=== PATIENT | male | born 1965 | race African-American/Black ===

== ENCOUNTER 2017-11-30 02:56 | Emergency (ER) | payer MEDICAID, MEDICARE, OTHER ==
--- NOTE | 2017-11-30 09:14 | RAD ---
LEFT ANKLE 3 VIEWS: Date: 11/30/17 HISTORY: Injury. Ran over by a forklift. COMPARISON: None. FINDINGS: There is extensive medial malleolar soft tissue edema. The ankle mortise is congruent. IMPRESSION: Extensive medial soft tissue edema without displaced fracture appreciated. POS: [facility]
--- NOTE | 2017-11-30 09:16 | RAD ---
LEFT FOOT 3 VIEWS: Date: 11/30/17 HISTORY: Injury. Ran over by a forklift. Trauma. COMPARISON: None. FINDINGS: There is mild degenerative disease at the great toe metatarsophalangeal and interphalangeal joints. E xtensive medial and plantar soft tissue swelling. Evaluation of Lisfranc interval is poor. IMPRESSION: 1. Extensive medial soft tissue swelling and plantar soft tissue swelling. 2. 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 3. Given the rotation, evaluation of the Lisfranc interval is poor. Recommend correlation with focal tenderness of the mid foot. A repeat examination is recommended. POS: [facility]
== END 2017-11-30 04:21 | disposition home or self-care (01) ==
LOC: MADERS 02:56
DX: S90.02XA Contusion of left ankle, initial encounter (principal); F17.210 Nicotine dependence, cigarettes, uncomplicated; V03.10XA Pedestrian on foot injured in collision with car, pick-up truck or van in traffic accident, initial encounter
CPT/HCPCS: 29515

== ENCOUNTER 2017-12-01 11:32 | Emergency (ER) | payer MEDICAID, MEDICARE, OTHER ==
[2017-12-01] MEDS ORDERED: HYDROcodone/Acetaminophen 5/325 mg Tablet ONE (12:58)
--- NOTE | 2017-12-01 13:05 | CT ---
CT LEFT ANKLE WITHOUT CONTRAST: Date: 12/01/17 HISTORY: Injury. COMPARISON: Radiographs prior day. FINDINGS: Bones: No fracture. No malalignment. There is some ossification of the distal posterior tibial tendon near i ts insertion of the navicular with tendinosis. The Lisfranc interval is maintained. No midfoot fractu re. The talus and calcaneus are intact, as well as the cuboid and cuneiforms. Navicular is intact. Talar dome is intact. There is some fragmentation along the deltoid ligament, evidence of old injury. No os teochondral fracture. The ankle mortise is congruent. Soft Tissues: There is extensive hemorrhage along the medial aspect of the ankle and hindfoot with findings likely indicating a flexor retinaculum tear. Muscles: There is abnormal edema and what appears to be some hemorrhage at the abductor hallucis muscles. IMPRESSION: 1. No acute fracture or malalignment. 2. Likely a partial tear of the abductor hallucis muscle. 3. Abnormal hemorrhage along the medial aspect of the ankle and foot, suggesting a flexor retinaculu m tear. 4. Intact Lisfranc interval. POS: [facility]
== END 2017-12-01 13:09 | disposition home or self-care (01) ==
LOC: MADERS 11:32
DX: S76.212A Strain of adductor muscle, fascia and tendon of left thigh, initial encounter (principal); S96.012A Strain of muscle and tendon of long flexor muscle of toe at ankle and foot level, left foot, initial encounter; X50.9XXA Other and unspecified overexertion or strenuous movements or postures, initial encounter
CPT/HCPCS: 29515

== ENCOUNTER 2017-12-22 22:29 | Emergency (ER) | payer MEDICAID, MEDICARE, OTHER ==
[2017-12-22] MEDS ORDERED: Sulfameth/Trimethoprim DS 800-160mg TAB ONE (23:40)
[2017-12-22] MEDS ORDERED: Ketorolac Tromethamine 60 MG/2 ML VIAL ONE (23:40)
[2017-12-22] MEDS ORDERED: traMADol HCl 50 MG TAB ONE (23:40)
[2017-12-23 00:18] LABS: #Basophils 0.1 thou/uL (0.0-0.2); #Eosinphils 0.2 thou/uL (0.0-0.7); #Lymphocytes 3.2 thou/uL (1.20-3.40); #Monocytes 0.4 thou/uL (0.11-0.59); #Neutrophils 3.7 thou/uL (1.40-6.50); %Basophils 1.3 % (0.0-1.0); %Eosinophils 2.7 % (0.0-10.0); %Lymphocytes 41.9 % (21.0-51.0); %Monocytes 5.6 % (0.0-10.0); %Neutrophils 48.5 % (42.0-75.0); Hemoglobin 13.3 g/dL (14.0-18.0); Mean Corpuscular HGB CONC 32.4 g/dL (32.0-36.0); Mean Corpuscular Hemoglobin 28.2 pg (27.0-31.0); Mean Platelet Volume 6.3 fL (7.4-10.4); Platelet Count 327 thou/uL (130-400); RBC Distribution Width 12.4 % (11.5-14.5); Red Blood Cell (RBC) Count 4.73 mill/uL (4.70-6.10); White Blood Cell (WBC) Count 7.7 thou/uL (4.8-10.8)
[2017-12-23 00:27] LABS: ALT (SGPT) 21 U/L (8-55); AST (SGOT) 19 U/L (5-34); Albumin 4.1 g/dL (3.5-5.0); Alkaline Phosphatase 85 U/L (40-150); Anion Gap 15 mmol/L (10-20); BUN (Urea Nitrogen) 14 mg/dL (8.4-25.7); Bilirubin, Total 0.4 mg/dL (0.2-1.2); Calc. Creatinine Clearance 0 mL/min (70-130); Calcium 9.8 mg/dL (7.8-10.44); Carbon Dioxide 22 mmol/L (22-29); Chloride 107 mmol/L (98-107); Estimated GFR-MDRD 74; Globulin 3.5 g/dL (2.4-3.5); Glucose 117 mg/dL (70-105); Potassium 4.1 mmol/L (3.5-5.1); Protein, Total 7.6 g/dL (6.0-8.3); Sodium 140 mmol/L (136-145)
== END 2017-12-22 22:52 | disposition home or self-care (01) ==
LOC: MADERS 22:29
DX: S43.402A Unspecified sprain of left shoulder joint, initial encounter (principal); L03.116 Cellulitis of left lower limb; F17.210 Nicotine dependence, cigarettes, uncomplicated; W31.82XA Contact with other commercial machinery, initial encounter; Y92.69 Other specified industrial and construction area as the place of occurrence of the external cause; Y99.0 Civilian activity done for income or pay
CPT/HCPCS: 36415; 80053; 85025; 87070; 87205; 96372; J1885

== ENCOUNTER 2018-07-04 21:07 | Emergency (ER) | payer MEDICARE, MEDICAID | END 2018-07-04 21:45 | disposition home or self-care (01) | LOC: MADERS 21:07 | DX: R42 Dizziness and giddiness (principal); F31.9 Bipolar disorder, unspecified; F20.9 Schizophrenia, unspecified; F17.210 Nicotine dependence, cigarettes, uncomplicated | CPT/HCPCS: 99283 ==

== ENCOUNTER 2020-07-02 14:16 | Outpatient (CLI) | payer MEDICARE ==
[2020-07-03 02:22] LABS: SARS-CoV-2 PCR by NAA Not Detected (NotDetected)
== END 2020-07-02 14:17 | disposition home or self-care (01) ==
LOC: MADLAB 14:16
PROVIDERS: ATTEND Nurse Practitioner Primary Care
DX: Z20.822 Contact with and (suspected) exposure to COVID-19 (principal)
CPT/HCPCS: 87635; U0003; U0005

== ENCOUNTER 2021-05-24 01:40 | Emergency (ER) | payer MEDICARE | END 2021-05-24 02:35 | disposition home or self-care (01) | LOC: MADERS 01:40 | DX: F41.9 Anxiety disorder, unspecified (principal); M19.90 Unspecified osteoarthritis, unspecified site; Z86.73 Personal history of transient ischemic attack (TIA), and cerebral infarction without residual deficits; F17.210 Nicotine dependence, cigarettes, uncomplicated | CPT/HCPCS: 99284 ==

== ENCOUNTER 2025-01-18 15:16 | Emergency (ER) | payer MEDICARE, MEDICAID ==
[2025-01-18 16:10] LABS: ALT (SGPT) 22 U/L (Less than 45); AST (SGOT) 48 U/L (11-34); Albumin 4.0 g/dL (3.1-4.5); Alkaline Phosphatase 70 U/L (40-110); Anion Gap 16 mmol/L (10-20); BUN (Urea Nitrogen) 12 mg/dL (8.4-25.7); Bilirubin, Total 0.4 mg/dL (0.3-1.2); Calc. Creatinine Clearance 0 mL/min (70-130); Calcium 9.2 mg/dL (7.8-10.44); Carbon Dioxide 21 mmol/L (22-29); Chloride 105 mmol/L (98-107); Globulin 3.9 g/dL (2.4-3.5); Glucose 120 mg/dL (70-105); Potassium 3.9 mmol/L (3.5-5.1); Sodium 138 mmol/L (136-145)
[2025-01-18 16:11] LABS: Troponin I Less than 0.010 ng/mL (< 0.028)
[2025-01-18] MEDS ORDERED: Ketorolac Tromethamine 30 MG (1 mL) VIAL ONE (16:13)
[2025-01-18 16:28] LABS: #Basophils 0.1 thou/uL (0.0-0.2); #Eosinophils 0.2 thou/uL (0.0-0.7); #Lymphocytes 2.3 thou/uL (1.20-3.40); #Monocytes 0.3 thou/uL (0.11-0.59); #Neutrophils 5.5 thou/uL (1.40-6.50); %Basophils 1.5 % (0.0-1.0); %Eosinophils 2.8 % (0.0-10.0); %Lymphocytes 27.2 % (21.0-51.0); %Monocytes 3.9 % (0.0-10.0); %Neutrophils 64.6 % (42.0-75.0); Hematocrit 38.1 % (42.0-52.0); Hemoglobin 11.8 g/dL (14.0-18.0); Mean Corpuscular Hemoglobin 25.9 pg (27.0-31.0); Mean Corpuscular Volume 83.4 fl (78.0-98.0); Platelet Count 414 10x3/uL (130-400); Red Blood Cell (RBC) Count 4.57 mill/uL (4.70-6.10); White Blood Cell (WBC) Count 8.6 10x3/uL (4.8-10.8)
[2025-01-18 17:00] LABS: Glucose, Urine (Dipstick) Negative (Negative); Leukocyte Negative (Negative); Protein, Urine (Dipstick) Negative (Neg-Trace); Specific Gravity, Urine 1.010 (1.005-1.030)
[2025-01-18 17:08] LABS: CAUTI Indications for Culture Pelvic or flank pain; Cocaine Metabolite Screen PRELIM POSITIVE (Negative); RBC/HPF None Seen HPF (0-3); THC/Cannabinoid Screen PRELIM POSITIVE (Negative); Tricyclic Screen Negative (Negative); WBC/HPF None Seen HPF (0-3)
[2025-01-18 17:09] LABS: Bacteria/HPF Rare-Few HPF (None Seen); Mucous/LPF Rare LPF (<2+); Urine Culture Reflex No No
== END 2025-01-18 16:52 | disposition home or self-care (01) ==
LOC: MADERS 15:16
DX: R07.9 Chest pain, unspecified (principal); F41.1 Generalized anxiety disorder; Z86.73 Personal history of transient ischemic attack (TIA), and cerebral infarction without residual deficits; I10 Essential (primary) hypertension; E78.5 Hyperlipidemia, unspecified; Z79.82 Long term (current) use of aspirin; Z79.899 Other long term (current) drug therapy
CPT/HCPCS: 71046; 80053; 80306; 81001; 84484; 85025; 93005; J1885; J7030; 96374

== ENCOUNTER 2025-03-19 12:20 | Emergency (ER) | payer MEDICARE, MEDICAID ==
[2025-03-19 13:11] LABS: Glucose, Urine (Dipstick) Negative (Negative); Leukocyte Negative (Negative); Protein, Urine (Dipstick) Negative (Neg-Trace); Specific Gravity, Urine 1.015 (1.005-1.030)
[2025-03-19 13:15] LABS: Bacteria/HPF Rare-Few HPF (None Seen); CAUTI Indications for Culture Alt mental st,lethar; RBC/HPF 0-3 HPF (0-3); WBC/HPF 0-3 HPF (0-3)
[2025-03-19 13:16] LABS: Urine Culture Reflex No No
[2025-03-19 13:17] LABS: ALT (SGPT) 19 U/L (Less than 45); AST (SGOT) 19 U/L (11-34); Albumin 3.9 g/dL (3.1-4.5); Alkaline Phosphatase 75 U/L (40-110); Anion Gap 12 mmol/L (10-20); BUN (Urea Nitrogen) 14 mg/dL (8.4-25.7); Bilirubin, Total 0.6 mg/dL (0.3-1.2); Calc. Creatinine Clearance 0 mL/min (70-130); Calcium 8.7 mg/dL (7.8-10.44); Carbon Dioxide 23 mmol/L (22-29); Chloride 104 mmol/L (98-107); Globulin 3.3 g/dL (2.4-3.5); Glucose 101 mg/dL (70-105); Potassium 3.9 mmol/L (3.5-5.1); Sodium 135 mmol/L (136-145)
[2025-03-19 13:18] LABS: Acetaminophen Less than 10 mcg/mL (Less than 10); Hematocrit 37.1 % (42.0-52.0); Hemoglobin 11.5 g/dL (14.0-18.0); MDiff Complete? YES; Mean Corpuscular Hemoglobin 26.1 pg (27.0-31.0); Mean Corpuscular Volume 84.1 fl (78.0-98.0); Platelet Adequacy Comment Appears Adequate; Platelet Count 340 10x3/uL (130-400); Red Blood Cell (RBC) Count 4.42 mill/uL (4.70-6.10); Salicylate Less than 8.0 mg/dL (Less than 8.0); White Blood Cell (WBC) Count 7.3 10x3/uL (4.8-10.8)
[2025-03-19 13:19] LABS: Troponin I Less than 0.010 ng/mL (< 0.028)
[2025-03-19 13:28] LABS: THC/Cannabinoid Screen Negative (Negative)
[2025-03-19 13:29] LABS: Cocaine Metabolite Screen PRELIM POSITIVE (Negative); Tricyclic Screen Negative (Negative)
== END 2025-03-19 17:50 | disposition short-term general hospital (02) ==
LOC: MADERS 12:20
DX: R45.851 Suicidal ideations (principal); F14.20 Cocaine dependence, uncomplicated; J45.909 Unspecified asthma, uncomplicated; I10 Essential (primary) hypertension; E78.5 Hyperlipidemia, unspecified; I25.2 Old myocardial infarction; F17.210 Nicotine dependence, cigarettes, uncomplicated; Z86.73 Personal history of transient ischemic attack (TIA), and cerebral infarction without residual deficits; Z79.899 Other long term (current) drug therapy
CPT/HCPCS: 36415; 80053; 80306; 80307; 81001; 84443; 84484; 85025; 93005; 94760; 99285

== ENCOUNTER 2025-03-30 17:28 | Emergency (ER) | payer MEDICARE, MEDICAID ==
[2025-03-30 18:02] LABS: #Basophils 0.1 thou/uL (0.0-0.2); #Eosinophils 0.3 thou/uL (0.0-0.7); #Lymphocytes 2.9 thou/uL (1.20-3.40); #Monocytes 0.5 thou/uL (0.11-0.59); #Neutrophils 4.3 thou/uL (1.40-6.50); %Basophils 1.7 % (0.0-1.0); %Eosinophils 3.8 % (0.0-10.0); %Lymphocytes 35.7 % (21.0-51.0); %Monocytes 6.5 % (0.0-10.0); %Neutrophils 52.4 % (42.0-75.0); Hematocrit 37.4 % (42.0-52.0); Hemoglobin 11.5 g/dL (14.0-18.0); Mean Corpuscular Hemoglobin 25.9 pg (27.0-31.0); Mean Corpuscular Volume 84.4 fl (78.0-98.0); Platelet Count 329 10x3/uL (130-400); Red Blood Cell (RBC) Count 4.43 mill/uL (4.70-6.10); White Blood Cell (WBC) Count 8.1 10x3/uL (4.8-10.8)
[2025-03-30 18:12] LABS: Cocaine Metabolite Screen Negative (Negative); THC/Cannabinoid Screen PRELIM POSITIVE (Negative); Tricyclic Screen Negative (Negative)
[2025-03-30 18:15] LABS: Acetaminophen Less than 10 mcg/mL (Less than 10); Salicylate Less than 8.0 mg/dL (Less than 8.0)
[2025-03-30 18:17] LABS: ALT (SGPT) 17 U/L (Less than 45); AST (SGOT) 25 U/L (11-34); Albumin 4.1 g/dL (3.1-4.5); Alkaline Phosphatase 87 U/L (40-110); Anion Gap 15 mmol/L (10-20); BUN (Urea Nitrogen) 18 mg/dL (8.4-25.7); Bilirubin, Total 0.3 mg/dL (0.3-1.2); Calc. Creatinine Clearance 0 mL/min (70-130); Calcium 9.2 mg/dL (7.8-10.44); Carbon Dioxide 24 mmol/L (22-29); Chloride 105 mmol/L (98-107); Globulin 3.6 g/dL (2.4-3.5); Glucose 117 mg/dL (70-105); Potassium 4.3 mmol/L (3.5-5.1); Sodium 140 mmol/L (136-145)
== END 2025-03-30 20:34 | disposition home or self-care (01) ==
LOC: MADERS 17:28
DX: R45.851 Suicidal ideations (principal); I10 Essential (primary) hypertension; E78.5 Hyperlipidemia, unspecified; F17.210 Nicotine dependence, cigarettes, uncomplicated; Z86.73 Personal history of transient ischemic attack (TIA), and cerebral infarction without residual deficits; Z79.82 Long term (current) use of aspirin; Z79.899 Other long term (current) drug therapy
CPT/HCPCS: 36415; 80053; 80306; 80307; 85025